=== PATIENT | female | born 1965 | race Caucasian/White ===

== ENCOUNTER 2022-03-28 05:43 | Day surgery (SDC) | payer OTHER, SELFPAY ==
[2022-03-26 13:40] VITALS: BMI 29.0
--- NOTE | 2022-03-28 06:04 | W.PM.OPSFHP ---
Same Day Surgery H&P Indication for Procedure/HPI DATE OF PROCEDURE: March 28, 2022 CHIEF COMPLAINT/INDICATIONFOR SURGICAL PROCEDURE: Screening colonoscopy PREOP DIAGNOSIS: Screening colonoscopy PLANNED PROCEDURE: Operation Date: 03/28/22 07:00 Proposed Procedures p Colonoscopy 84567/z12.11(Not Applicable) - Christian Shin MD This is a pleasant 56-year-old female patient referred to my practice for screening colonoscopy. Patient reports that she does have some intermittent blood in stool with hemorrhoids likely. She denies recent change in bowel habits, she reports her mom had history of colon cancer age of 70 and both of her cousins had colon cancer as well. ROS All systems have been reviewed negative except as for the above or per problem list. Medications/Allergies* Home Medications Medication Instructions Recorded Confirmed Type cetirizine 10 mg tablet 10 mg PO DAILY 03/26/22 03/26/22 History fluticasone propionate 50 1 spray intranasal DAILY 03/26/22 03/26/22 History mcg/actuation nasal spray,suspension levothyroxine 100 mcg capsule 100 mcg PO DAILY 03/26/22 03/26/22 History paroxetine HCl 30 mg tablet 30 mg PO DAILY 03/26/22 03/26/22 History Allergies/Adverse Reactions Allergy/AdvReac Type Severity Reaction Status Date / Time No Known Allergies Allergy Verified 03/28/22 06:25 Pertinent Exam Findings alert, oriented x 3, clear to auscultation bilaterally, regular rate & rhythm and procedure specific exam findings (Abdominal exam nontender nondistended soft) Recommendations Surgery/Procedure today (Screening colonoscopy) Other Plans: Plan of care; After thorough history and physical examination and reviewing the chart, plan to perform screening colonoscopy. I discussed with the patient in details the risks,benefits,alternatives and indications.The risk of aspiration, bleeding, soft tissue injury, perforation of the colon ,missed lesions and other potential concomitant complications were explained to the patient in details,also the potential need for Laproscoy/Laparotomy to repair any related complications including but not limited to colectomy and or Closotomy.The patient understood this well and did agree to proceed. Rationale was carefully and clearly discussed with the patient.Appropriate informed consent have been reviewed and signed All questions have been answered and all concerns have been addressed to patient's satisfaction. Verbal and written Instructions were given to the patient for colonoscopy prep Coding Level of Care Code Acute [employer] for Stefani Gonzalez
[2022-03-28 06:16] VITALS: BP 115/77; PULSE 85; RESP 16; TEMP 36.2; O2SAT 93
[2022-03-28] MEDS: sodium chloride 0.9% 1,000 ML 30 ML IV (06:27)
--- NOTE | 2022-03-28 06:49 | ANES.PREANE2 ---
Pre-Anesthetic Assessment Height/Weight: Height 1.6 m Weight 74.389 kg Temp Pulse Resp BP Pulse Ox O2 Del Method 97.2 F L 85 16 115/77 93 03/28/22 06:16 03/28/22 06:16 03/28/22 06:16 03/28/22 06:16 03/28/22 06:16 03/28/22 06:16 Preop Diagnosis: Screening colonoscopy Operation Date: 03/28/22 07:00 Proposed Procedures p Colonoscopy 56278/z12.11(Not Applicable) - Christian Shin MD Was Beta Kristin taken within 24 hours: N/A Was Clonidine taken within 24 hours: N/A Last intake: Intake Last Liquid Date 03/27/22 Last Liquid Time 00:00 Last Solid Date 03/26/22 Last Solid Time 16:00 Social Tobacco 1 pack(s) per day Exam alert, oriented x 3, clear to auscultation bilaterally and regular rate & rhythm Airway Submandibular: within normal limits Cervical ROM: within normal limits Mallampati: Class II Dentition: false History/ROS No significant history except as noted and No significant complaints Pulmonary Chronic Obstructive Pulmonary Disease CV/HEM None reported None reported Hepatic None reported GI None reported Metabolic Thyroid Disease Musc/skel None reported Neuropsych None reported Anesthetic Plan ASA status: 3 Anesthesia: Anesthesia Evaluation and MAC Risk of > 500 ml blood loss (7ml/kg in children): No Medications/Allergies Home Medications Medication Instructions Recorded Confirmed Last Taken Type cetirizine 10 mg tablet 10 mg PO DAILY 03/26/22 03/28/22 03/27/22 History fluticasone propionate 50 1 spray intranasal DAILY 03/26/22 03/28/22 03/26/22 History mcg/actuation nasal spray,suspension levothyroxine 100 mcg capsule 100 mcg PO DAILY 03/26/22 03/28/22 03/27/22 History paroxetine HCl 30 mg tablet 30 mg PO DAILY 03/26/22 03/28/22 03/26/22 History Allergies Allergy/AdvReac Type Severity Reaction Status Date / Time No Known Allergies Allergy Verified 03/28/22 06:25 Current Medications Generic Name Dose Route Start Last Admin Trade Name Freq PRN Reason Stop Dose Admin Sodium Chloride 1,000 mls @ 30 mls/hr 03/28/22 06:00 03/28/22 06:27 Sodium Chloride 0.9% IV 03/29/22 05:59 30 mls/hr .Q24H JAIDEN Administration Data Anesthesia Cardiac Studies: No Data to Display
[2022-03-28 07:28] VITALS: BP 106/71; PULSE 75; RESP 16; TEMP 36.2; O2SAT 97
[2022-03-28 07:33] VITALS: BP 86/55; PULSE 86; RESP 18; O2SAT 94
[2022-03-28 07:43] VITALS: BP 112/57; PULSE 77; RESP 18; O2SAT 95
--- NOTE | 2022-03-28 13:28 | ANE.PACU2 ---
Inpatient post-anesthesia follow up: Airway intact: Yes Vital signs: Temperature 97.1 F Pulse Rate 77 Respiratory Rate 18 Blood Pressure 112/57 Pulse Oximetry 95 Oxygen Delivery Me thod Room Air Oxygen Flow Rate 4 Fraction of Inspir ed Oxygen Hydration adequate: Yes Nausea and vomiting: No Pain level: 1 Mental status: Baseline
== END 2022-03-28 08:07 | disposition home or self-care (01) ==
PROVIDERS: PCP Family Medicine; Visit Provider Surgery
PROC: 0DJD8ZZ Inspection of Lower Intestinal Tract, Via Natural or Artificial Opening Endoscopic (ICD-10-PCS; CPT 45378; principal; 2022-03-28 07:00)
DX: Z12.11 Encounter for screening for malignant neoplasm of colon (principal); D12.4 Benign neoplasm of descending colon; D12.5 Benign neoplasm of sigmoid colon; K57.30 Diverticulosis of large intestine without perforation or abscess without bleeding; J44.9 Chronic obstructive pulmonary disease, unspecified
CPT/HCPCS: 45385; 88305; J2704; J7030